=== PATIENT | female | born 1990 | race Caucasian/White ===

== ENCOUNTER 2023-08-28 13:33 | Observation (INO) | payer BC, SELFPAY ==
[2023-08-28 14:07] LABS: % Basophils 0.2 % (0-2); % Eosinophils 0.3 % (0-6); % Immature Granulocytes 0.5 % (0-0.5); % Monocytes 8.1 % (1.7-9.3); % Neutrophils 60.9 % (42.2-75.2); Absolute Monocytes 0.5 10^3/uL (0.1-0.6); Hematocrit 33.5 % (37.0-47.0); Hemoglobin 11.9 g/dL (12.0-16.0); Mean Corp Hgb Conc. 35.5 g/dL (33.0-37.0); Mean Corpuscular Hgb 34.1 pg (27.0-31.0); Mean Platelet Volume 11.3 fL (7.4-10.4); Nucleated Red Blood Cells % 0 %; Platelet Count 218 10^3/uL (130-400); Red Blood Cell Count 3.49 10^6/uL (4.20-5.40); Red Cell Dist. Width 13.2 % (11.5-14.5); White Blood Cell Count 6.6 10^3/uL (4.8-10.8)
[2023-08-28 14:24] VITALS: BP 129/85; BMI 25.8
[2023-08-28 14:27] LABS: Urine Albumin Negative (Neg - Trace); Urine Bilirubin Negative (Negative); Urine Character Clear (Clear); Urine Color Straw; Urine Glucose Negative (Negative); Urine Ketone Negative (Negative); Urine Leukocyte Negative (Negative); Urine Nitrite Negative (Negative); Urine Occult Blood Negative (Negative); Urine Urobilinogen Negative (Neg - 1+)
[2023-08-28 15:03] LABS: ALT (SGPT) 11 U/L (0-35); AST (SGOT) 24 U/L (14-36); Albumin 3.3 g/dl (3.5-5.0); Alkaline Phosphatase 218 U/L (38-126); Blood Urea Nitrogen 9 mg/dl (7-17); Calcium 9.1 mg/dl (8.4-10.2); Carbon Dioxide 21 mmol/L (22-30); Chloride 109 mmol/L (98-107); Estimated Creatinine Clearance > 125 ml/min; Glucose 75 mg/dl (70-99); Potassium 4.1 mmol/L (3.5-5.1); Sodium 133 mmol/L (135-145); Total Bilirubin 0.3 mg/dl (0.2-1.3); Total Protein 6.2 g/dl (6.3-8.2); eGFR > 60.00
[2023-08-28 15:15] LABS: Protein/creatinine Ratio 0.3; Urine Protein 12 mg/dl
== END 2023-08-28 16:20 | disposition home or self-care (01) ==
LOC: PNTC-IN 13:33
PROVIDERS: ADMITTING PHYSICIAN Obstetrics & Gynecology; ATTENDING PHYSICIAN Obstetrics & Gynecology
DX: O14.03 Mild to moderate pre-eclampsia, third trimester (principal); G43.909 Migraine, unspecified, not intractable, without status migrainosus; O99.353 Diseases of the nervous system complicating pregnancy, third trimester; Z3A.37 37 weeks gestation of pregnancy; O99.343 Other mental disorders complicating pregnancy, third trimester; F32.A Depression, unspecified; F43.10 Post-traumatic stress disorder, unspecified; Z86.16 Personal history of COVID-19
CPT/HCPCS: 59025; 76816; 80053; 81003; 82570; 84156; 85025; G0378

== ENCOUNTER 2023-08-28 19:40 | Inpatient (IN) | payer BC, SELFPAY ==
[2023-08-28 19:52] VITALS: BP 133/81; BMI 25.8
[2023-08-28 20:25] LABS: % Basophils 0.2 % (0-2); % Eosinophils 0.2 % (0-6); % Immature Granulocytes 0.4 % (0-0.5); % Lymphocytes 27.8 % (20.5-51.1); % Monocytes 6.7 % (1.7-9.3); % Neutrophils 64.7 % (42.2-75.2); Absolute Lymphocytes 2.7 10^3/uL (1.2-3.4); Absolute Monocytes 0.6 10^3/uL (0.1-0.6); Absolute Neutrophils 6.2 10^3/uL (1.4-6.5); Hematocrit 31.6 % (37.0-47.0); Hemoglobin 11.3 g/dL (12.0-16.0); Mean Corp Hgb Conc. 35.8 g/dL (33.0-37.0); Mean Corpuscular Hgb 33.2 pg (27.0-31.0); Mean Corpuscular Volume 92.9 fL (81.0-99.0); Mean Platelet Volume 11.3 fL (7.4-10.4); Nucleated Red Blood Cells % 0 %; Platelet Count 210 10^3/uL (130-400); Red Cell Dist. Width 12.9 % (11.5-14.5); White Blood Cell Count 9.5 10^3/uL (4.8-10.8)
[2023-08-28] MEDS: LR 1000 IV (20:38)
[2023-08-28] MEDS: CYTOTEC 25 MICROGRAM VAG (20:38)
[2023-08-29] MEDS: CYTOTEC 50 MICROGRAM PO ×2 (01:29→05:28)
[2023-08-29] MEDS: CYTOTEC PO (10:42)
[2023-08-29] MEDS: SUBLIMAZE 100 MCG EPIDURAL (12:39)
[2023-08-30 05:35] LABS: Hematocrit 33.7 % (37.0-47.0); Hemoglobin 11.7 g/dL (12.0-16.0)
[2023-09-04 13:41] LABS: Syphilis/T. pallidum Ab Reflex Negative (Negative)
== END 2023-08-30 15:08 | disposition home or self-care (01) | DRG 807 ==
LOC: LDRP 19:40
PROVIDERS: Obstetrics & Gynecology; ADMITTING PHYSICIAN Obstetrics & Gynecology
PROC: 3E0P7VZ Introduction of Hormone into Female Reproductive, Via Natural or Artificial Opening (ICD-10-PCS; 2023-08-28)
PROC: 10E0XZZ Delivery of Products of Conception, External Approach (ICD-10-PCS; 2023-08-29)
DX: O14.04 Mild to moderate pre-eclampsia, complicating childbirth (principal); Z37.0 Single live birth; O69.81X0 Labor and delivery complicated by cord around neck, without compression, not applicable or unspecified; Z3A.37 37 weeks gestation of pregnancy
CPT/HCPCS: 88307; 59025; 76816; 80053; 81003; 82570; 84156; 85014; 85018; 85025; 86780; 86850; 86900; 86901; G0378

== ENCOUNTER → 2024-05-01 10:14 | Outpatient (REF) | payer BC, SELFPAY | LOC: HWRAD 10:14 | PROVIDERS: ATTENDING PHYSICIAN Student in an Organized Health Care Education/Training Program; FAMILY PHYSICIAN Internal Medicine | DX: R10.2 Pelvic and perineal pain (principal) | CPT/HCPCS: 76830; 76856 ==

== ENCOUNTER → 2025-03-30 08:55 | Outpatient (REF) | payer BC, SELFPAY | LOC: HWRAD 08:55 | PROVIDERS: ATTENDING PHYSICIAN Student in an Organized Health Care Education/Training Program | DX: R10.9 Unspecified abdominal pain (principal) | CPT/HCPCS: 76700 ==